=== PATIENT | female | born 1980 | race African-American/Black ===

== ENCOUNTER 2018-10-30 09:41 | Emergency (ER) | payer OTHER ==
[2018-10-30] MEDS ORDERED: ALPRAZOLAM 1 MG TABLET ONE (11:37)
[2018-10-30 12:10] LABS: ALT/SGPT 30 U/L (12-78); AST/SGOT 27 U/L (15-37); Alkaline Phosphatase 65 U/L (45-117); BUN Blood Urea Nitrogen 18 mg/dL (7-18); Bicarbonate 27 mmol/L (21-32); Bilirubin Direct < 0.1 mg/dL (0-0.2); Bilirubin Total 0.3 mg/dL (0.2-1.0); Glucose Level 104 mg/dL (74-106); Lipase 81 U/L (73-393); Protein, Total 8.1 g/dL (6.4-8.2); Sodium Level 141 mmol/L (136-145)
[2018-10-30 12:21] LABS: Absolute Monocytes 0.3 K/uL (0.1-1.3); Absolute Neutrophil 3.3 K/uL (1.8-8.0); Basophils % 1.1 % (0-1.3); Hematocrit 34.5 % (36.0-45.0); Lymphocytes % 21.7 % (15.3-44.8); MPV 7.5 fL (7.6-11.3); Monocytes % 5.6 % (3.3-12.3)
[2018-10-30 12:46] LABS: Urine Blood NEGATIVE (NEG); Urine Glucose NEGATIVE (NEG); Urine Protein NEGATIVE (NEG); Urine pH 6.5 (5.0-7.0)
--- NOTE | 2018-10-30 12:57 | RAD REPORT ---
EXAM DESCRIPTION: CT - Abdomen Pelvis W Contrast - 10/30/2018 12:34 pm CLINICAL HISTORY: Abdominal pain COMPARISON: none. TECHNIQUE: Computed axial tomography of the abdomen pelvis was obtained. 100 cc Isovue-300 was admin istered intravenously. Oral contrast was not requested which limits evaluation of bowel. All CT scans are performed using dose optimization technique as appropriate and may include automated exposure control or mA/KV adjustment according to patient size. FINDINGS: Postsurgical changes involve the stomach . The gallbladder has been removed He liver, spleen, pancreas, adrenal and kidneys appear unremarkable. There is no evidence of diverticulitis. A moderate amount of stool is present throughout the colon An adnexal mass is not seen IMPRESSION: Moderate amount stool present throughout the colon No acute abnormality displayed
[2018-10-30] MEDS ORDERED: DIAZEPAM 10 MG/2 ML INJ SYRINGE ONE (14:03)
--- NOTE | 2018-10-30 14:53 | EDPHYS ---
Physician Documentation [facility] Name: Lyubov Roque Age: 38 yrs Sex: Female : 1980 Arrival Date: 10/30/2018 Time: 09:43 Bed 15 Private MD: ED Physician Sammy Torres HPI: 10/30 13:04 This 38 yrs old Black Female presents to ER via Ambulatory with complaints of Anxiety. kdr 13:04 The patient has been having increasing generalized anxiety over the past few months. IN kdr years past, she had been on Xanax for anxiety but has not taken anything fo her anxiety. This morning, she also had a brief episode of suprapubic pain that lasted just a few minutes and then resolved. Since she had had prior gastric surgery with a difficult recovery, she was concerned that the may be developing some complication to the that prior process. Onset: The symptoms/episode began/occurred The anxiety has been ongoing for some time and the abdominal pain was brief earlier today. Severity of symptoms: At their worst the symptoms were mild in the emergency department the symptoms have improved mildly. yes to both anxiety and abdominal pain. 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 - Social history:: Smoking status: Patient/guardian denies using tobacco. - Ebola Screening: : No symptoms or risks identified at this time. ROS: 13:04 Constitutional: Negative for fever, chills, and weight loss, Eyes: Negative for injury, kdr pain, redness, and discharge, Neck: Negative for injury, pain, and swelling, Cardiovascular: Negative for chest pain, palpitations, and edema, Respiratory: Negative for shortness of breath, cough, wheezing, and pleuritic chest pain, Back: Negative for injury and pain, : Negative for injury, bleeding, discharge, and swelling, MS/Extremity: Negative for injury and deformity, Skin: Negative for injury, rash, and discoloration, Neuro: Negative for headache, weakness, numbness, tingling, and seizure activity. Psych: Negative for depression, anxiety, suicide ideation, homicidal ideation, and hallucinations, Allergy/Immunology: Negative for hives, rash, and allergies, Endocrine: Negative for neck swelling, polydipsia, polyuria, polyphagia, and marked weight changes, Hematologic/Lymphatic: Negative for swollen nodes, abnormal bleeding, and unusual bruising. 13:04 Abdomen/GI: Positive for abdominal pain, nausea, Negative for dysphagia, hematemesis, black/tarry stool, rectal pain, rectal bleeding, bowel incontinence. Exam: 13:04 Constitutional: This is a well developed, well nourished patient who is awake, alert, kdr and in no acute distress. Head/Face: Normocephalic, atraumatic. Eyes: Pupils equal round and reactive to light, extra-ocular motions intact. Lids and lashes normal. Conjunctiva and sclera are non-icteric and not injected. Cornea within normal limits. Periorbital areas with no swelling, redness, or edema. Neck: Trachea midline, no thyromegaly or masses palpated, and no cervical lymphadenopathy. Supple, full range of motion without nuchal rigidity, or vertebral point tenderness. No Meningismus. Chest/axilla: Normal chest wall appearance and motion. Nontender with no deformity. No lesions are appreciated. Cardiovascular: Regular rate and rhythm with a normal S1 and S2. No gallops, murmurs, or rubs. Normal PMI, no JVD. No pulse deficits. Respiratory: Lungs have equal breath sounds bilaterally, clear to auscultation and percussion. No rales, rhonchi or wheezes noted. No increased work of breathing, no retractions or nasal flaring. Back: No spinal tenderness. No costovertebral tenderness. Full range of motion. Skin: Warm, dry with normal turgor. Normal color with no rashes, no lesions, and no evidence of cellulitis. MS/ Extremity: Pulses equal, no cyanosis. Neurovascular intact. Full, normal range of motion. Neuro: Awake and alert, GCS 15, oriented to person, place, time, and situation. Cranial nerves II-XII grossly intact. Motor strength 5/5 in all extremities. Sensory grossly intact. Cerebellar exam normal. Normal gait. Psych: Awake, alert, with orientation to person, place and time. Behavior, mood, and affect are within normal limits. 13:04 Abdomen/GI: Inspection: scar(s), are noted in the abdomen diffusely, Bowel sounds: active, diminished, in all quadrants, Palpation: soft, mild abdominal tenderness, in the suprapubic area, right upper quadrant and left upper quadrant. Vital Signs: 10:09 BP 137 / 85; Pulse 87; Resp 16; Temp 97.7; Pulse Ox 100% on R/A; Pain 5/10; hb 11:00 BP 107 / 67; Pulse 81; Resp 16; Pulse Ox 99% on R/A; rb1 12:00 BP 98 / 59; Pulse 73; Resp 17; Pulse Ox 99% on R/A; rb1 13:00 BP 115 / 72; Pulse 70; Resp 16; Pulse Ox 100% on R/A; Pain 3/10; rb1 14:00 BP 115 / 71; Pulse 67; Resp 17; Pulse Ox 100% ; rb1 15:00 BP 112 / 68; Pulse 71; Resp 16; Pulse Ox 100% ; rb1 MDM: 13:04 Data reviewed: vital signs, nurses notes, lab test result(s), radiologic studies. kdr Counseling: I had a detailed discussion with the patient and/or guardian regarding: the historical points, exam findings, and any diagnostic results supporting the discharge/admit diagnosis, lab results, radiology results, the need for outpatient follow up. 14:52 Patient medically screened. kdr 14:56 ED course: The patient was feeling much better though her condition was not completely kdr resolved. 10/30 11:07 Order name: Urine Dipstick--Ancillary (enter results); Complete Time: 12:54 eb 10/30 11:07 Order name: Urine --Ancillary (enter results); Complete Time: 12:54 eb 10/30 11:19 Order name: Basic Metabolic Panel; Complete Time: 12:54 kdr 10/30 11:19 Order name: CBC with Diff; Complete Time: 12:54 kdr 10/30 11:19 Order name: Creatinine for Radiology; Complete Time: 12:54 kdr 10/30 11:19 Order name: Hepatic Function; Complete Time: 12:54 kdr 10/30 11:19 Order name: Lipase; Complete Time: 12:54 kdr 10/30 11:19 Order name: IV Saline Lock; Complete Time: 11:42 kdr 10/30 11:19 Order name: Labs collected and sent; Complete Time: 11:42 kdr 10/30 11:19 Order name: CT Abd/Pelvis - W/Contrast; Complete Time: 13:03 kdr Administered Medications: 11:30 Drug: XANax Tablet 1 mg Route: PO; rb1 15:11 Follow up: Response: No adverse reaction; Anxiety decreased ss 13:58 Drug: Valium 5 mg Route: IVP; Site: right antecubital; rb1 15:11 Follow up: Response: No adverse reaction; Marked relief of symptoms ss 15:05 Drug: traMADol 50 mg Route: PO; ss 15:11 Follow up: Response: No adverse reaction; Medication administered at discharge. ss Disposition: 10/30/18 14:52 Discharged to Home. Impression: Anxiety disorder, unspecified, Abdominal and pelvic pain, Constipation. - Condition is Stable. - Discharge Instructions: Constipation, Adult, [id number]-[id number], Abdominal Pain, Adult, [id number]-bl-Grxr, Panic Attacks, Xqwv-qi-Eehy. - Prescriptions for Xanax 1 mg Oral Tablet - take 1 tablet by ORAL route every 8 hours As needed; 20 tablet. Tramadol 50 mg Oral Tablet - take 1 tablet by ORAL route every 8 hours as needed; 20 tablet. Miralax 17 gram/dose Oral - take 1 packet by ORAL route once daily As needed dilute powder in 8 ounces of water or juice; 1 box. - Medication Reconciliation Form, Thank You Letter, Prescription Opioid Use form. - Follow up: Private Physician; When: 2 - 3 days; Reason: If symptoms return, Further diagnostic work-up, Recheck today's complaints, Continuance of care, Re-evaluation by your physician. - Problem is an acute exacerbation. - Symptoms have improved. Signatures: Dispatcher [employer] EDMS Sammy Torres MD MD [facility] Yanely Azul RN RN Ana Munson RN RN rb1 Anh Lee RN RN Corrections: (The following items were deleted from the chart) 10:53 10:10 Home Meds: None; hb rb1 15:10 14:52 10/30/2018 14:52 Discharged to Home. Impression: Anxiety disorder, unspecified; ss Abdominal and pelvic pain; Constipation. Condition is Stable. Forms are Medication Reconciliation Form, Thank You Letter, Antibiotic Education, Prescription Opioid Use. Follow up: Private Physician; When: 2 - 3 days; Reason: If symptoms return, Further diagnostic work-up, Recheck today's complaints, Continuance of care, Re-evaluation by your physician. Problem is an acute exacerbation. Symptoms have improved. kdr 15:11 15:10 10/30/2018 14:52 Discharged to Home. Impression: Anxiety disorder, unspecified; ss Abdominal and pelvic pain; Constipation. Condition is Stable. Discharge Instructions: Constipation, Adult, Rjlv-hu-Kfhg, Abdominal Pain, Adult, Pznh-aj-Kvoe, Panic Attacks, Kshc-ep-Hanc. Prescriptions for Xanax 1 mg Oral Tablet - take 1 tablet by ORAL route every 8 hours As needed; 20 tablet, Tramadol 50 mg Oral Tablet - take 1 tablet by ORAL route every 8 hours as needed; 20 tablet, Miralax 17 gram/dose Oral - take 1 packet by ORAL route once daily As needed dilute powder in 8 ounces of water or juice; 1 box. and Forms are Medication Reconciliation Form, Thank You Letter, Prescription Opioid Use. Follow up: Private Physician; When: 2 - 3 days; Reason: If symptoms return, Further diagnostic work-up, Recheck today's complaints, Continuance of care, Re-evaluation by your physician. Problem is an acute exacerbation. Symptoms have improved. ss
--- NOTE | 2018-10-30 14:53 | ER ---
Nurse's Notes [facility] Name: Lyubov oRque Age: 38 yrs Sex: Female : 1980 Arrival Date: 10/30/2018 Time: 09:43 Bed 15 Private MD: Diagnosis: Anxiety disorder, unspecified;Abdominal and pelvic pain;Constipation Presentation: 10/30 10:08 Presenting complaint: Patient states: "I have a history of anxiety and I used to take hb medicine for it, I am really stressed, yesterday I started feeling crazy and jittery and having blurred vision,". Transition of care: patient was not received from another setting of care. Onset of symptoms was October 29, 2018. Risk Assessment: Do you want to hurt yourself or someone else? Patient reports no desire to harm self or others. Care prior to arrival: None. 10:08 Method Of Arrival: Ambulatory hb 10:08 Acuity: BRIDGET 3 hb 10:40 Initial Sepsis Screen: Does the patient meet any 2 criteria? No. Patient's initial rb1 sepsis screen is negative. Does the patient have a suspected source of infection? No. Patient's initial sepsis screen is negative. 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 - Social history:: Smoking status: Patient/guardian denies using tobacco. - Ebola Screening: : No symptoms or risks identified at this time. Screenin:40 Abuse screen: Denies threats or abuse. Nutritional screening: No deficits noted. rb1 Tuberculosis screening: No symptoms or risk factors identified. Fall Risk None identified. Assessment: 10:40 General: Appears distressed, Behavior is anxious, Denies fever. Pain: Complains of pain rb1 in suprapubic area Pain currently is 4 out of 10 on a pain scale. Pain began this morning. Neuro: Level of Consciousness is awake, alert, obeys commands, Oriented to person, place, time, situation. Cardiovascular: Capillary refill < 3 seconds is brisk in bilateral fingers. Respiratory: Airway is patent Respiratory effort is even, unlabored, Respiratory pattern is regular, symmetrical. GI: Reports nausea. : Reports pain with urination. Derm: Skin is dry, Skin is normal, Skin temperature is warm. Musculoskeletal: Range of motion: intact in all extremities. 11:40 Reassessment: Patient appears in no apparent distress at this time. Patient and/or rb1 family updated on plan of care and expected duration. Pain level reassessed. Patient is alert, oriented x 3, equal unlabored respirations, skin warm/dry/pink. 12:40 Reassessment: Patient appears in no apparent distress at this time. Family at bedside. rb1 13:40 Reassessment: Patient appears in no apparent distress at this time. Patient and/or rb1 family updated on plan of care and expected duration. Pain level reassessed. Patient is alert, oriented x 3, equal unlabored respirations, skin warm/dry/pink. Pt. is feeling a little anxious. Educated on slow breathing. 14:40 Reassessment: Patient appears in no apparent distress at this time. Patient and/or rb1 family updated on plan of care and expected duration. Pain level reassessed. Patient is alert, oriented x 3, equal unlabored respirations, skin warm/dry/pink. Family remains at bedside. Vital Signs: 10:09 BP 137 / 85; Pulse 87; Resp 16; Temp 97.7; Pulse Ox 100% on R/A; Pain 5/10; hb 11:00 BP 107 / 67; Pulse 81; Resp 16; Pulse Ox 99% on R/A; rb1 12:00 BP 98 / 59; Pulse 73; Resp 17; Pulse Ox 99% on R/A; rb1 13:00 BP 115 / 72; Pulse 70; Resp 16; Pulse Ox 100% on R/A; Pain 3/10; rb1 14:00 BP 115 / 71; Pulse 67; Resp 17; Pulse Ox 100% ; rb1 15:00 BP 112 / 68; Pulse 71; Resp 16; Pulse Ox 100% ; rb1 ED Course: :43 Patient arrived in ED. as 10:09 Triage completed. hb 10:09 Arm band placed on. hb 10:40 Patient has correct armband on for positive identification. Bed in low position. Call rb1 light in reach. Side rails up X 1. Pulse ox on. NIBP on. 10:43 Sammy Torres MD is Attending Physician. kdr 10:44 Ana Munson, RN is Primary Nurse. rb1 12:34 CT Abd/Pelvis - W/Contrast In Process Unspecified. EDMS 15:08 No provider procedures requiring assistance completed. IV discontinued, intact, ss bleeding controlled, No redness/swelling at site. Pressure dressing applied. Administered Medications: 11:30 Drug: XANax Tablet 1 mg Route: PO; rb1 15:11 Follow up: Response: No adverse reaction; Anxiety decreased ss 13:58 Drug: Valium 5 mg Route: IVP; Site: right antecubital; rb1 15:11 Follow up: Response: No adverse reaction; Marked relief of symptoms ss 15:05 Drug: traMADol 50 mg Route: PO; ss 15:11 Follow up: Response: No adverse reaction; Medication administered at discharge. Outcome: 14:52 Discharge ordered by . kdr 15:08 Discharged to home ambulatory, with family. ss 15:08 Condition: good 15:08 Discharge instructions given to patient, family, Instructed on discharge instructions, follow up and referral plans. medication usage, Demonstrated understanding of instructions, follow-up care, medications, Prescriptions given X 3. 15:10 Patient left the ED. ss 15:11 Patient left the ED. ss Signatures: Dispatcher [employer] EDMS Sammy Torres MD MD kdr Shelly Gamboa Shelby, RN RN Ana Munson, RN RN rb1 Anh Lee RN RN Corrections: (The following items were deleted from the chart) 10:53 10:10 Home Meds: None; hb rb1
[2018-10-30] MEDS ORDERED: TRAMADOL HCL 50 MG TAB ONE (15:15)
== END 2018-10-30 15:11 | disposition home or self-care (01) ==
LOC: ER 09:41
DX: F41.9 Anxiety disorder, unspecified (principal); K59.00 Constipation, unspecified
CPT/HCPCS: 36415; 74177; 80048; 80076; 81003; 81025; 83690; 85025; J3360; Q9967

== ENCOUNTER 2022-04-26 13:20 | Emergency (ER) | payer OTHER, SELFPAY ==
[2022-04-26] MEDS ORDERED: ONDANSETRON 4 MG/2 ML VIAL ONE (14:09)
[2022-04-26] MEDS ORDERED: FAMOTIDINE 20 MG/2 ML VIAL IV ONE (14:09)
[2022-04-26 14:11] LABS: Urine Blood Negative (Negative); Urine Glucose Negative (Negative); Urine Protein Negative (Negative); Urine Specific Gravity 1.015 (1.005-1.030)
[2022-04-26 14:35] LABS: Absolute Lymphocytes (CBC) 1.3 K/uL (0.7-4.9); Hematocrit 34.4 % (36.0-45.0); Lymphocytes % 17.5 % (15.3-44.8); MCV 71.1 fL (80-100); MPV 6.5 fL (7.6-11.3); RBC Red Blood Cell Count 4.83 M/uL (3.86-4.86)
[2022-04-26 14:38] LABS: Urine Bacteria <20 /HPF (<20); Urine RBC <5 /HPF (None Seen)
[2022-04-26 14:39] LABS: Urine Mucus 2+ /HPF (None Seen)
[2022-04-26 14:54] LABS: Albumin 3.9 g/dL (3.4-5.0); Bilirubin Total 0.5 mg/dL (0.2-1.0); Potassium 3.5 mmol/L (3.5-5.1); Protein, Total 8.4 g/dL (6.4-8.2)
[2022-04-26] MEDS ORDERED: FENTANYL CITR 100 MCG/2 ML ONE (15:07)
[2022-04-26] MEDS ORDERED: LORazepam 2 MG/ML VIAL ONE (15:30)
[2022-04-26 16:32] LABS: Urine Specific Gravity/Preg 1.015 (1.005-1.030)
--- NOTE | 2022-04-26 18:36 | RAD REPORT ---
EXAM DESCRIPTION: MRI - C Spine Wo Cont- 04/26/2022 6:28 pm CLINICAL HISTORY: back pain Back pain, radiculopathy COMPARISON: No comparisons FINDINGS: Cervical vertebral bodies are normal in height and alignment. No suspicious marrow edema or marrow replacing process. No fracture or traumatic subluxation. The craniocervical junction is normal. C2-3 level: No significant findings. C3-4 level: Minimal posterior disc bulge. C4-5 level: No significant findings. C5-6 level: Central disc herniation is present measuring 4 mm. This attenuates the anterior subarachn oid space and contacts the anterior cord. Mild left-sided foraminal encroachment. C6-7 level: No significant findings. C7-T1 level: No significant findings. Cervical cord is normal in size and signal. IMPRESSION: Small central disc herniation is present at C5-6. Mild left foraminal encroachment at th is level.
--- NOTE | 2022-04-26 18:37 | RAD REPORT ---
EXAM DESCRIPTION: MRI - Thoracic Spine Wo Contr - 04/26/2022 6:28 pm CLINICAL HISTORY: back pain Back pain, radiculopathy COMPARISON: No comparisons FINDINGS: The vertebral body heights and disc spaces are maintained. Marrow pattern of the thoracic spine is within normal limits. No significant herniated disc, canal stenosis or foraminal stenosis at any level. No paraspinal mass or hematoma. The thoracic cord is normal in size and signal. IMPRESSION: Unremarkable study.
--- NOTE | 2022-04-26 18:48 | RAD REPORT ---
EXAM DESCRIPTION: MRI - Lumbar Spine Nano Rosario- 04/26/2022 6:37 pm CLINICAL HISTORY: Low back pain, prior surgery, new symptoms Back pain, radiculopathy COMPARISON: No comparisons FINDINGS: Vertebral body heights are within normal limits. No aggressive marrow pattern is observed. No fracture is suspected. The conus medullaris terminates at a normal level. No thickening of the cauda equina or clumping of n erve roots seen. L1-2 level: No significant findings. L2-3 level: No significant findings. L3-4 level: No significant findings. L4-5 level: Mild posterior disc bulge with moderate facet and ligamentum flavum hypertrophy. No signi ficant central canal stenosis or foraminal narrowing. L5-S1 level: Posterior disc bulge with small amount central protruded disc material measuring 5 mm in anterior-posterior dimension. Mild facet and ligamentum flavum hypertrophy is present. No significan t canal stenosis or foraminal narrowing. IMPRESSION: Mild to moderate lower lumbar spondylosis seen. No high-grade canal stenosis or high-gra de foraminal narrowing seen at any level.
--- NOTE | 2022-04-26 19:13 | ER ---
Nurse's Notes [facility] Name: Lyubov Roque Age: 41 yrs Sex: Female : 1980 Arrival Date: 04/26/2022 Time: 13:23 Bed 15 Private MD: Sergio Correia S Diagnosis: Cervical disc disorder with [id number];Intervertebral disc disorders with radiculopathy, lumbar [id number], L5-S1 Presentation: 04/26 13:41 Chief complaint: Patient states: I suffer from anxiety and panic disorder, but i dont't iw feel well, my back hurts in lower area and her left arm is numb and tingly into the pinky and ring finger since two weeks ago, i have issues with my back ,has done pain management in past , feels like my kidneys hurt and it gets numb into my right leg , recently had skin removal surgery , reports loss of appetite and body aches, and nausea X 3 days ago. Coronavirus screen: At this time, the client does not indicate any symptoms associated with coronavirus-19. Ebola Screen: Patient negative for fever greater than or equal to 101.5 degrees Fahrenheit, and additional compatible Ebola Virus Disease symptoms Patient denies exposure to infectious person. Patient denies travel to an Ebola-affected area in the 21 days before illness onset. No symptoms or risks identified at this time. Initial Sepsis Screen: Does the patient meet any 2 criteria? No. Patient's initial sepsis screen is negative. Does the patient have a suspected source of infection? No. Patient's initial sepsis screen is negative. Risk Assessment: Do you want to hurt yourself or someone else? Patient reports no desire to harm self or others. Onset of symptoms was April 23, 2022. 13:41 Method Of Arrival: Ambulatory iw 13:41 Acuity: BRIDGET 3 iw Triage Assessment: 14:28 General: Appears uncomfortable, Behavior is anxious. Musculoskeletal: Reports pain in jg9 back and right low back and left low back and lumbar area. 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 - Social history:: Smoking status: Patient/guardian denies using tobacco, the patient reports quitting approximately 2 years ago. Screenin:27 Abuse screen: Denies threats or abuse. Denies injuries from another. Nutritional jg9 screening: No deficits noted. Tuberculosis screening: No symptoms or risk factors identified. Fall Risk None identified. Assessment: 14:27 Pain: Complains of pain in lumbar area, left low back and right low back Pain currently jg9 is 9 out of 10 on a pain scale. Neuro: Level of Consciousness is awake, alert, obeys commands, Oriented to person, place, time, situation. 18:55 Reassessment: No changes from previously documented assessment. Patient and/or family jg9 updated on plan of care and expected duration. Pain level reassessed. Patient is alert, oriented x 3, equal unlabored respirations, skin warm/dry/pink. 19:28 Reassessment: Patient and/or family updated on plan of care and expected duration. Pain vc1 level reassessed. Patient is alert, oriented x 3, equal unlabored respirations, skin warm/dry/pink. Vital Signs: 13:41 BP 134 / 81; Pulse 88; Resp 16; Temp 98.1; Pulse Ox 100% on R/A; Weight 81.65 kg; iw Height 5 ft. 6 in. (167.64 cm); Pain 7/10; 14:30 BP 120 / 89; Pulse 81; Resp 20 S; Pulse Ox 95% on R/A; Pain 9/10; jg9 15:45 BP 113 / 77; Pulse 84; Resp 16; Pulse Ox 96% on R/A; jg9 16:30 BP 114 / 76; Pulse 86; Resp 15 S; Pulse Ox 95% on R/A; jg9 17:30 BP 118 / 73; Pulse 66; Resp 17 S; Pulse Ox 97% on R/A; Pain 8/10; jg9 18:45 BP 115 / 83; Pulse 88; Resp 17 S; Pulse Ox 100% on R/A; jg9 19:28 BP 120 / 87; Pulse 92; Resp 18; Pulse Ox 100% ; vc1 13:41 Body Mass Index 29.05 (81.65 kg, 167.64 cm) iw ED Course: 13:23 Patient arrived in ED. am2 13:23 Sergio Correia MD is Private Physician. am2 13:44 Triage completed. iw 13:45 Arm band placed on. iw 13:49 [facility]ind Johnson PA [facility]. cp 13:49 Ronan Baez MD is Attending Physician. cp 14:27 Lauren Duong, MICHAEL is Primary Nurse. jg9 14:28 Patient has correct armband on for positive identification. Bed in low position. Call jg9 light in reach. Side rails up X 1. 14:30 Inserted saline lock: 20 gauge in right forearm, using aseptic technique. Blood jg9 collected. 17:39 Patient moved to MRI via wheelchair. jg9 18:30 MRI Lumbar Spine wo Con In Process Unspecified. EDMS 18:30 C Spine Wo Cont In Process Unspecified. EDMS 18:30 Thoracic Spine Wo Contr In Process Unspecified. EDMS 18:44 Patient moved back from CT. Patient moved back from MRI. jg9 19:10 Ponce Garcia MD is Referral Physician. cp 19:29 No provider procedures requiring assistance completed. vc1 19:35 IV discontinued, intact, bleeding controlled, No redness/swelling at site. Pressure vc1 dressing applied. Administered Medications: 14:41 Drug: Pepcid (famotidine) 20 mg Route: IVP; Site: right antecubital; jg9 15:03 Follow up: Response: No adverse reaction; No change in condition jg9 14:41 Drug: Zofran (Ondansetron) 4 mg Route: IVP; Site: right antecubital; jg9 15:03 Follow up: Response: Nausea unchanged jg9 15:03 Drug: fentaNYL (PF) 25 mcg Route: IVP; Site: right antecubital; jg9 15:30 Follow up: Response: No adverse reaction; Pain is unchanged, physician notified jg9 17:32 Drug: Ativan (LORazepam) 0.5 mg Route: IVP; Site: right forearm; jg9 Medication: 19:35 VIS not applicable for this client. vc1 Point of Care Testing: Urine : 14:27 hCG Reading: Negative; Control Reading: Positive; jg9 Outcome: 19:13 Discharge ordered by MD. cp 19:35 Discharged to home ambulatory. vc1 19:35 Condition: good 19:35 Discharge instructions given to patient, Instructed on discharge instructions, follow up and referral plans. medication usage, Demonstrated understanding of instructions, follow-up care, medications, Prescriptions given X 3. 19:37 Patient left the ED. vc1 Signatures: Dispatcher [employer] EDRachel Broussard RN RN iw Arvind Johnson PA PA cp Moreno, Amanda am2 Lauren Duong RN RN jg9 Juany Moreau RN RN vc1 Corrections: (The following items were deleted from the chart) 13:44 13:41 Chief complaint: Patient states: I suffer from anxiety and panic disorder, but i iw dont't feel well, my back hurts in lower area and her left arm is numb and tingly into the pinky and ring finger since two weeks ago, i have issues with my back ,has done pain management in past , feels like my kidneys hurt and it gets numb into my right leg , recently had skin removal surgery iw
--- NOTE | 2022-04-26 19:13 | EDPHYS ---
Physician Documentation [facility] Name: Lyubov Roque Age: 41 yrs Sex: Female : 1980 Arrival Date: 04/26/2022 Time: 13:23 Bed 15 Private MD: Sergio Correia S ED Physician Ronan Baez HPI: 04/26 14:00 This 41 yrs old Black Female presents to ER via Ambulatory with complaints of Back cp Pain, Arm Pain, Anxiety. 14:00 The patient presents with pain that is chronic, worse over past several weakns. The cp symptoms are located in the mid and lower back. The pain radiates to the right leg and left leg. Associated signs and symptoms: Pertinent positives: urinary urgency, Pertinent negatives: incontinence. The problem was sustained from a chronic condition, the patient has known disc disease, the patient has had previous back surgery. 14:03 Patient reports having cosmetic surgery earlier this year to remove skin from bilateral cp inner thigh and lower abdomen that caused her to sleep in recliner. Patient feels this has increased chronic low back pain and now she is having right anterior thigh paresthesia. Patient denies saddle anesthesia, denies bowel and/or bladder incontinence. 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 Patient denies neck pain and/or neck injury. 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 - Social history:: Smoking status: Patient/guardian denies using tobacco, the patient reports quitting approximately 2 years ago. ROS: 14:05 Constitutional: Negative for body aches, chills, fever, poor PO intake. cp 14:05 Eyes: Negative for injury, pain, redness, and discharge. cp 14:05 Neck: Negative for injury or acute deformity, pain with movement, pain at rest, stiffness. 14:05 Respiratory: Negative for cough, shortness of breath, wheezing. 14:05 Abdomen/GI: Negative for abdominal pain, vomiting, diarrhea, constipation, bowel incontinence. 14:05 Back: Positive for pain at rest, pain with movement. 14:05 : Negative for urinary symptoms, hematuria, bladder incontinence. 14:05 Neuro: Positive for numbness, weakness, of the left hand, Negative for altered mental status, headache. 14:05 Psych: Positive for anxiety, Negative for auditory hallucinations, visual hallucinations, homicidal ideation, suicide gesture, suicidal ideation. 14:05 All other systems are negative. Exam: 14:15 Head/Face: Normocephalic, atraumatic. cp 14:15 Constitutional: The patient appears in no acute distress, alert, awake, non-diaphoretic, non-toxic, well developed, well nourished, overweight 14:15 Eyes: Periorbital structures: appear normal, Conjunctiva: normal, no exudate, no injection, Sclera: no appreciated abnormality, Lids and lashes: appear normal, bilaterally. 14:15 ENT: External ear(s): are unremarkable, Nose: is normal, Mouth: Lips: moist, Oral mucosa: moist, Posterior pharynx: Airway: no evidence of obstruction, patent. 14:15 Neck: C-spine: vertebral tenderness, is not appreciated, crepitus, is not appreciated, ROM/movement: is normal, is supple, without pain, no range of motions limitations. 14:15 Chest/axilla: Inspection: normal. 14:15 Cardiovascular: Rate: normal, Rhythm: regular. 14:15 Respiratory: the patient does not display signs of respiratory distress, Respirations: cp normal, no use of accessory muscles, no retractions, labored breathing, is not present, Breath sounds: are clear throughout, no decreased breath sounds, no stridor, no wheezing. 14:15 Abdomen/GI: Inspection: abdomen appears normal, Palpation: abdomen is soft and non-tender, in all quadrants. 14:15 Back: pain, that is moderate, of the low back area and mid back area, ROM is painful, with all movement, Straight leg raises: of both lower extremities does not illicit pain. 14:15 Skin: cellulitis, is not appreciated, no rash present. 14:15 Neuro: Orientation: to person, place \T\ time. Mentation: is normal, Motor: moves all fours, subjective weakness of left hand lead neurodiagnostic technologist, Sensation: numbness, that is mild, of the left fourth and fifth fingers, Gait: is steady. Vital Signs: 13:41 BP 134 / 81; Pulse 88; Resp 16; Temp 98.1; Pulse Ox 100% on R/A; Weight 81.65 kg; iw Height 5 ft. 6 in. (167.64 cm); Pain 7/10; 14:30 BP 120 / 89; Pulse 81; Resp 20 S; Pulse Ox 95% on R/A; Pain 9/10; jg9 15:45 BP 113 / 77; Pulse 84; Resp 16; Pulse Ox 96% on R/A; jg9 16:30 BP 114 / 76; Pulse 86; Resp 15 S; Pulse Ox 95% on R/A; jg9 17:30 BP 118 / 73; Pulse 66; Resp 17 S; Pulse Ox 97% on R/A; Pain 8/10; jg9 18:45 BP 115 / 83; Pulse 88; Resp 17 S; Pulse Ox 100% on R/A; jg9 19:28 BP 120 / 87; Pulse 92; Resp 18; Pulse Ox 100% ; vc1 13:41 Body Mass Index 29.05 (81.65 kg, 167.64 cm) iw MDM: 13:50 Patient medically screened. cp 14:00 Differential diagnosis: chronic back pain, Pyelonephritis ruptured disc, spinal injury, cp Ureterolithiasis vertebral fracture, spinal stenosis, cauda equina. 19:13 Data reviewed: vital signs, nurses notes, lab test result(s), radiologic studies, MRI. 19:13 Counseling: I had a detailed discussion with the patient and/or guardian regarding: the cp historical points, exam findings, and any diagnostic results supporting the discharge/admit diagnosis, lab results, radiology results, the need for outpatient follow up, for definitive care, a neurosurgeon, to return to the emergency department if symptoms worsen or persist or if there are any questions or concerns that arise at home. Response to treatment: Pain improved, and as a result, I will discharge patient. ED course: VSS. Discussed results of findings of MRI studies performed today. No emergent surgical findings noted with today's test. Patient has seen DR Garcia in the past. Recommendation is for close f/u. Return to ED worsening symptoms. 04/26 13:50 Order name: CBC with Diff; Complete Time: 14:57 cp 04/26 14:58 Interpretation: Normal except: HGB 10.5; HCT 34.4; MCV 71.1; MCH 21.8; MCHC 30.6; PLT cp 420; RDW 17.9; MPV 6.5; TINA% 75.0. 04/26 13:50 Order name: CMP; Complete Time: 14:57 cp 04/26 14:58 Interpretation: Normal except: NA 135; GLUC 131; GFR 72; GLOB 4.5; A/G 0.9; TP 8.4. cp 04/26 13:50 Order name: Lipase; Complete Time: 14:57 cp 04/26 13:50 Order name: Urine Microscopic Only; Complete Time: 14:57 cp 04/26 14:12 Order name: Urine Dipstick-Ancillary; Complete Time: 14:13 EDMS 04/26 14:41 Order name: Urine Culture EDMS 04/26 15:00 Order name: MRI Lumbar Spine wo Con; Complete Time: 18:54 cp 04/26 15:08 Order name: C Spine Wo Cont; Complete Time: 18:54 EDMS 04/26 15:08 Order name: Thoracic Spine Wo Contr; Complete Time: 18:54 EDMS 04/26 15:31 Order name: Urine --Ancillary (enter results); Complete Time: 18:54 eb 04/26 13:50 Order name: IV Saline Lock; Complete Time: 14:35 cp 04/26 13:50 Order name: Labs collected and sent; Complete Time: 14:35 cp 04/26 13:50 Order name: Urine Dipstick-Ancillary (obtain specimen); Complete Time: 14:27 cp 04/26 13:50 Order name: Urine Test (obtain specimen); Complete Time: 14:27 cp Administered Medications: 14:41 Drug: Pepcid (famotidine) 20 mg Route: IVP; Site: right antecubital; jg9 15:03 Follow up: Response: No adverse reaction; No change in condition jg9 14:41 Drug: Zofran (Ondansetron) 4 mg Route: IVP; Site: right antecubital; jg9 15:03 Follow up: Response: Nausea unchanged jg9 15:03 Drug: fentaNYL (PF) 25 mcg Route: IVP; Site: right antecubital; jg9 15:30 Follow up: Response: No adverse reaction; Pain is unchanged, physician notified jg9 17:32 Drug: Ativan (LORazepam) 0.5 mg Route: IVP; Site: right forearm; jg9 Point of Care Testing: Urine : 14:27 hCG Reading: Negative; Control Reading: Positive; jg9 Disposition: 04/27 15:57 Attestation: The patient's history, exam findings, diagnostics, and a summary of any [facility] interventions or procedures was reviewed in detail with Arvind SHANKAR. Disposition Summary: 04/26/22 19:13 Discharge Ordered Location: Home cp Problem: new cp Symptoms: have improved cp Condition: Stable cp Diagnosis - Cervical disc disorder with radiculopathy - C5-C6 cp - Intervertebral disc disorders with radiculopathy, lumbar region - L4-L5, L5-S1 cp Followup: cp - With: Ponce Garcia MD - When: 2 - 3 days - Reason: Recheck today's complaints Discharge Instructions: - Discharge Summary Sheet cp - Cervical Radiculopathy cp - Herniated Disk cp - Lumbosacral Radiculopathy cp Forms: - Medication Reconciliation Form cp - Thank You Letter cp - Antibiotic Education cp - Prescription Opioid Use cp Prescriptions: - Baclofen 10 mg Oral Tablet - take 1 tablet by ORAL route 3 times per day; 20 tablet; Refills: 0, Product cp Selection Permitted - Lidoderm - apply 1 patch by TOPICAL route once daily As needed; 15 patch; Refills: 0, cp Product Selection Permitted - Medrol (Enoch) 4 mg Oral Tablets, Dose Pack - take 1 tablet by ORAL route as directed - follow package instructions; 1 cp packet; Refills: 0, Product Selection Permitted Signatures: Dispatcher [employer] Rachel Hansen RN RN iw Page, Corey, PA PA cp Lauren Duong RN RN jg9 Ronan Baez MD MD [email or web address] Corrections: (The following items were deleted from the chart) 04/26 14:58 14:58 Normal except: NA 135; GLUC 131; GFR 72. cp cp 17:04/25 14:15 Constitutional: The patient appears in no acute distress, alert, awake, cp non-diaphoretic, non-toxic, well developed, well nourished, overweight cp 04/26 17:19 04/25 14:15 Head/Face: Normocephalic, atraumatic. cp cp 04/26 17:04/25 14:15 Eyes: Periorbital structures: appear normal, Conjunctiva: normal, no cp exudate, no injection, Sclera: no appreciated abnormality, Lids and lashes: appear normal, bilaterally, cp 04/26 17:04/25 14:15 ENT: External ear(s): are unremarkable, Nose: is normal, Mouth: Lips: cp moist, Oral mucosa: moist, Posterior pharynx: Airway: no evidence of obstruction, patent, cp 04/26 17:04/25 14:15 Neck: C-spine: vertebral tenderness, is not appreciated, crepitus, is not cp appreciated, ROM/movement: is normal, is supple, without pain, no range of motions limitations, cp 04/26 17:04/25 14:15 Chest/axilla: Inspection: normal, cp cp 04/26 17:04/25 14:15 Cardiovascular: Rate: normal, Rhythm: regular, cp cp
[2022-04-26 19:47] VITALS: TEMP 98.1
[2022-04-26 20:14] VITALS: O2SAT 100
[2022-04-26 20:15] VITALS: BP 120/87
== END 2022-04-26 19:37 | disposition home or self-care (01) ==
LOC: ER 13:20
DX: M50.122 Cervical disc disorder at C5-C6 level with radiculopathy (principal); M51.17 Intervertebral disc disorders with radiculopathy, lumbosacral region; Z88.1 Allergy status to other antibiotic agents
CPT/HCPCS: 36415; 72141; 72146; 72148; 80053; 81003; 81015; 81025; 83690; 85025; 87086; 87088; 99284; J2405; J3010; J3490